=== PATIENT | male | born 1985 | race Caucasian/White ===

== ENCOUNTER 2016-10-18 09:37 | Emergency (ER) | payer OTHER ==
[~2016-10-18] VITALS: Ht 195.6 cm; Wt 96.2 kg
[2016-10-18 11:48] VITALS: BP 124/83
== END 2016-10-18 11:48 | disposition home or self-care (01) ==
LOC: ED 09:37
DX: S62.022A Displaced fracture of middle third of navicular [scaphoid] bone of left wrist, initial encounter for closed fracture (principal); W01.0XXA Fall on same level from slipping, tripping and stumbling without subsequent striking against object, initial encounter; Y93.89 Activity, other specified; Y92.89 Other specified places as the place of occurrence of the external cause; Y99.8 Other external cause status
CPT/HCPCS: J1885; Q0092

== ENCOUNTER 2017-12-31 19:59 | Emergency (ER) | payer OTHER ==
[~2017-12-31] VITALS: Ht 195.6 cm; Wt 91.2 kg
[2017-12-31 20:26] VITALS: BP 155/73; Ht 195.6 cm; Wt 91.2 kg
== END 2017-12-31 22:10 | disposition home or self-care (01) ==
LOC: ED 19:59
DX: M25.531 Pain in right wrist (principal)

== ENCOUNTER 2019-04-08 22:14 | Emergency (ER) | payer OTHER ==
[~2019-04-08] VITALS: Ht 195.6 cm; Wt 110.2 kg
[2019-04-08 22:24] VITALS: Ht 195.6 cm; Wt 110.2 kg
[2019-04-08 23:02] LABS: BASOPHIL % 0.6 % (0-2); PLATELET COUNT 249 x10^3mcL (130-400); RED CELL DISTRIBUTION WIDTH 13.4 % (11.5-14.5)
[2019-04-08 23:23] LABS: CALCIUM 8.4 mg/dL (8.5-10.1); CARBON DIOXIDE 28.4 mmol/L (21-32); CHLORIDE SERUM 103 mmol/L (98-107); CREATININE SERUM 1.2 mg/dL (0.7-1.3); GFR1 > 60 mL/min; GLUCOSE SERUM 96 mg/dL (74-106); POTASSIUM SERUM 3.4 mmol/L (3.5-5.1); SODIUM SERUM 139 mmol/L (136-145)
[2019-04-08 23:24] LABS: ALBUMIN 3.9 g/dL (3.4-5.0); ALKALINE PHOSPHATASE 60 U/L (46-116); ALT/SGPT 28 U/L (16-63); AST/SGOT 14 U/L (15-37); BILIRUBIN TOTAL 0.63 mg/dL (0.20-1.00); TOTAL PROTEIN, SERUM 7.5 g/dL (6.4-8.2)
[2019-04-09 02:24] VITALS: BP 103/55
== END 2019-04-09 02:24 | disposition home or self-care (01) ==
LOC: ED 22:14
DX: Z11.3 Encounter for screening for infections with a predominantly sexual mode of transmission (principal); G89.29 Other chronic pain; R10.11 Right upper quadrant pain
CPT/HCPCS: 36415; 87491; 87591

== ENCOUNTER 2019-05-02 15:22 | Emergency (ER) | payer OTHER ==
[~2019-05-02] VITALS: Ht 195.6 cm; Wt 103.9 kg
[2019-05-02 15:37] VITALS: Ht 195.6 cm; Wt 103.9 kg
[2019-05-02 16:19] LABS: PLATELET COUNT 265 x10^3mcL (130-400); RED CELL DISTRIBUTION WIDTH 14.6 % (11.5-14.5)
[2019-05-02 16:46] LABS: CALCIUM 8.8 mg/dL (8.5-10.1); CHLORIDE SERUM 105 mmol/L (98-107); CREATININE SERUM 1.2 mg/dL (0.7-1.3); GFR1 > 60 mL/min; GLUCOSE SERUM 103 mg/dL (74-106); POTASSIUM SERUM 3.5 mmol/L (3.5-5.1); SODIUM SERUM 141 mmol/L (136-145)
[2019-05-02 16:53] LABS: ALKALINE PHOSPHATASE 59 U/L (46-116); ALT/SGPT 27 U/L (16-63); AST/SGOT 13 U/L (15-37); BILIRUBIN TOTAL 0.9 mg/dL (0.20-1.00); CHOLESTEROL 106 mg/dL (<200); HDL CHOLESTEROL 41 mg/dL (40-60); MAGNESIUM 2.1 mg/dL (1.8-2.4); TOTAL PROTEIN, SERUM 7.7 g/dL (6.4-8.2)
[2019-05-02 17:02] LABS: microscopic required? NO
[2019-05-02 17:17] LABS: urine erythrocyte NEGATIVE (NEGATIVE)
[2019-05-02 18:47] VITALS: BP 120/70
== END 2019-05-02 18:47 | disposition home or self-care (01) ==
LOC: ED 15:22
PROVIDERS: Emergency Medicine
DX: K29.00 Acute gastritis without bleeding (principal); R53.1 Weakness; F19.10 Other psychoactive substance abuse, uncomplicated
CPT/HCPCS: J3490; J7030

== ENCOUNTER 2019-05-05 18:50 | Emergency (ER) | payer OTHER ==
[~2019-05-05] VITALS: Ht 195.6 cm; Wt 105.2 kg
[2019-05-05 19:08] VITALS: Ht 195.6 cm; Wt 105.2 kg
[2019-05-05 21:53] VITALS: BP 109/61
== END 2019-05-05 21:53 | disposition home or self-care (01) ==
LOC: ED 18:50
DX: Z11.3 Encounter for screening for infections with a predominantly sexual mode of transmission (principal); Z76.0 Encounter for issue of repeat prescription; Z90.49 Acquired absence of other specified parts of digestive tract; Z87.19 Personal history of other diseases of the digestive system

== ENCOUNTER 2019-10-28 18:13 | Emergency (ER) | payer OTHER ==
[~2019-10-28] VITALS: Ht 195.6 cm; Wt 110.2 kg
[2019-10-28 18:22] VITALS: Ht 195.6 cm; Wt 110.2 kg
[2019-10-28 19:10] VITALS: BP 126/86
== END 2019-10-28 19:11 | disposition home or self-care (01) ==
LOC: ED 18:13
DX: S63.602A Unspecified sprain of left thumb, initial encounter (principal); Z87.19 Personal history of other diseases of the digestive system; Z98.890 Other specified postprocedural states; X58.XXXA Exposure to other specified factors, initial encounter; Y93.89 Activity, other specified; Y92.89 Other specified places as the place of occurrence of the external cause; Y99.8 Other external cause status
CPT/HCPCS: Q0092